=== PATIENT | female | born 1965 | race Two or more races ===

== ENCOUNTER 2023-08-17 10:10 | Emergency (ER) | payer MEDICARE, OTHER ==
[~2023-08-17] VITALS: Ht 149.9 cm; Wt 60.5 kg
[2023-08-17] MEDS ORDERED: CEPH250S41 PO (11:56)
[2023-08-17] MEDS ORDERED: IBUP100S11 PO (11:56)
[2023-08-17 12:01] VITALS: BP 119/81; PULSE 100; RESP 18; TEMP 97.8; O2SAT 99
== END 2023-08-17 12:05 | disposition home or self-care (01) ==
LOC: ER 10:10
DX: S02.5XXA Fracture of tooth (traumatic), initial encounter for closed fracture (principal); S00.33XA Contusion of nose, initial encounter; S80.01XA Contusion of right knee, initial encounter; Z79.1 Long term (current) use of non-steroidal anti-inflammatories (NSAID); Z79.899 Other long term (current) drug therapy; W01.0XXA Fall on same level from slipping, tripping and stumbling without subsequent striking against object, initial encounter; Y93.89 Activity, other specified; Y92.89 Other specified places as the place of occurrence of the external cause; Y99.8 Other external cause status
CPT/HCPCS: 70160; 73562